=== PATIENT | female | born 1950 | race Two or more races ===

== ENCOUNTER 2022-06-03 18:24 | Inpatient (IN) | payer MEDICARE, BC ==
[2022-06-03 22:22] VITALS: BMI 17.4
[2022-06-03] MEDS ORDERED: Sodium Chloride 0.9% 1,000 ML IV SCH (23:45)
[2022-06-03] MEDS ORDERED: Ondansetron ODT 4 MG TAB PO PRN (23:50)
[2022-06-03] MEDS ORDERED: Acetaminophen 325 MG TAB PO PRN (23:50)
[2022-06-03] MEDS ORDERED: Ondansetron PF 4 MG/2 ML Vial IVP PRN (23:50)
[2022-06-03] MEDS ORDERED: HYDROcodone/Acetaminophen 5/325 mg Tablet PO PRN (23:50)
[2022-06-04] MEDS ORDERED: Dexamethasone 4 mg/ml Vial SLOW IVP SCH (00:15)
[2022-06-04 04:45] LABS: #Lymphocytes 0.6 thou/uL (1.20-3.40); #Monocytes 0.2 thou/uL (0.11-0.59); #Neutrophils 8.3 thou/uL (1.40-6.50); %Basophils 0.1 % (0.0-1.0); %Eosinophils 0.1 % (0.0-10.0); %Lymphocytes 6.8 % (21.0-51.0); %Monocytes 2.2 % (0.0-10.0); %Neutrophils 90.8 % (42.0-75.0); Hemoglobin 12.7 g/dL (12.0-16.0); Mean Corpuscular HGB CONC 32.5 g/dL (32.0-36.0); Mean Corpuscular Hemoglobin 28.6 pg (27.0-31.0); Mean Corpuscular Volume 87.8 fl (78.0-98.0); Mean Platelet Volume 6.8 fL (7.4-10.4); Platelet Count 444 10x3/uL (130-400); RBC Distribution Width 12.7 % (11.5-14.5); Red Blood Cell (RBC) Count 4.46 mill/uL (4.20-5.40); White Blood Cell (WBC) Count 9.2 10x3/uL (4.8-10.8)
[2022-06-04 05:08] LABS: ALT (SGPT) 14 U/L (8-55); AST (SGOT) 16 U/L (5-34); Albumin 3.6 g/dL (3.4-4.8); Alkaline Phosphatase 106 U/L (40-110); Anion Gap 16 mmol/L (10-20); BUN (Urea Nitrogen) 16 mg/dL (9.8-20.1); Bilirubin, Total 0.3 mg/dL (0.2-1.2); Calc. Creatinine Clearance 60 mL/min (70-130); Calcium 9.3 mg/dL (7.8-10.44); Carbon Dioxide 22 mmol/L (23-31); Chloride 100 mmol/L (98-107); Estimated GFR 94; Globulin 2.7 g/dL (2.4-3.5); Glucose 123 mg/dL (83-110); Potassium 3.9 mmol/L (3.5-5.1); Protein, Total 6.3 g/dL (5.8-8.1); Sodium 134 mmol/L (136-145)
[2022-06-04] MEDS: Dexamethasone 4 mg/ml Vial SLOW IVP SCH ×3 (06:30→18:02)
[2022-06-04] MEDS: cefTRIAXone\\ROCEPHIN 1 GM in Sodium Chloride 0.9% 100 ML IVPB SCH (10:56)
[2022-06-04] MEDS ORDERED: Iopamidol-370 76% 500 ML 1 ML ONE (13:38)
[2022-06-04] MEDS ORDERED: Magnevist 469MG/ML 20 ML VIAL ONE (14:07)
[2022-06-05] MEDS: Dexamethasone 4 mg/ml Vial SLOW IVP SCH ×4 (00:05→18:32)
[2022-06-05] MEDS: cefTRIAXone\\ROCEPHIN 1 GM in Sodium Chloride 0.9% 100 ML IVPB SCH (08:45)
[2022-06-06] MEDS: Dexamethasone 4 mg/ml Vial SLOW IVP SCH ×4 (06:01→19:10)
[2022-06-06] MEDS: cefTRIAXone\\ROCEPHIN 1 GM in Sodium Chloride 0.9% 100 ML IVPB SCH (09:14)
[2022-06-06] MEDS ORDERED: Polyethylene Glycol 3350 17 GM Packet PO PRN (19:36)
[2022-06-06] MEDS: Docusate 100 MG CAP PO SCH (20:26)
[2022-06-07] MEDS: Dexamethasone 4 mg/ml Vial SLOW IVP SCH ×5 (00:11→23:43)
[2022-06-07 08:19] LABS: Prothrombin Time 13.5 sec (12.0-14.7)
[2022-06-07 08:36] LABS: #Lymphocytes 0.5 thou/uL (1.20-3.40); #Monocytes 0.6 thou/uL (0.11-0.59); #Neutrophils 12.8 thou/uL (1.40-6.50); %Eosinophils 0.2 % (0.0-10.0); %Lymphocytes 3.8 % (21.0-51.0); Mean Corpuscular HGB CONC 32.2 g/dL (32.0-36.0); Mean Corpuscular Hemoglobin 27.9 pg (27.0-31.0); Mean Corpuscular Volume 86.8 fl (78.0-98.0); Mean Platelet Volume 6.4 fL (7.4-10.4); Platelet Count 539 10x3/uL (130-400); RBC Distribution Width 12.6 % (11.5-14.5); White Blood Cell (WBC) Count 13.9 10x3/uL (4.8-10.8)
[2022-06-07 08:56] LABS: ALT (SGPT) 15 U/L (8-55); AST (SGOT) 16 U/L (5-34); Albumin 3.7 g/dL (3.4-4.8); Alkaline Phosphatase 108 U/L (40-110); Anion Gap 14 mmol/L (10-20); BUN (Urea Nitrogen) 21 mg/dL (9.8-20.1); Bilirubin, Total 0.6 mg/dL (0.2-1.2); Calc. Creatinine Clearance 59 mL/min (70-130); Calcium 9.3 mg/dL (7.8-10.44); Carbon Dioxide 25 mmol/L (23-31); Chloride 99 mmol/L (98-107); Estimated GFR 94; Globulin 2.7 g/dL (2.4-3.5); Glucose 116 mg/dL (83-110); Potassium 3.9 mmol/L (3.5-5.1); Protein, Total 6.4 g/dL (5.8-8.1); Sodium 134 mmol/L (136-145)
[2022-06-07] MEDS: Docusate 100 MG CAP PO SCH ×2 (10:15→20:13)
[2022-06-07] MEDS: Amoxicillin/Potassium Clav 875 MG TAB PO SCH (20:15)
[2022-06-08] MEDS: Dexamethasone 4 mg/ml Vial SLOW IVP SCH ×2 (05:23→11:30)
[2022-06-08] MEDS: Amoxicillin/Potassium Clav 875 MG TAB PO SCH (08:27)
[2022-06-08] MEDS: Docusate 100 MG CAP PO SCH (08:28)
[2022-06-08 12:40] VITALS: BP 149/83; TEMP 98.2
== END 2022-06-08 14:07 | disposition home or self-care (01) | DRG 54 ==
LOC: 2NO 18:24 → MSONC 06-04 13:17
PROVIDERS: ADMIT Internal Medicine; ATTEND Internal Medicine
DX: C79.31 Secondary malignant neoplasm of brain (principal); G93.6 Cerebral edema; J18.8 Other pneumonia, unspecified organism; C34.90 Malignant neoplasm of unspecified part of unspecified bronchus or lung; Z66 Do not resuscitate; Z51.5 Encounter for palliative care; H18.519 Endothelial corneal dystrophy, unspecified eye; Z94.7 Corneal transplant status; Z98.890 Other specified postprocedural states; Z87.891 Personal history of nicotine dependence
CPT/HCPCS: 36415; 36416; 70553; 71275; 74177; 80053; 85025; 85610; 87086; A9579; J0696; J1100; J3490; J7050; Q9967